=== PATIENT | female | born 1975 ===

== ENCOUNTER 2019-02-02 13:02 | Outpatient (CLI) | payer BC, MEDICARE ==
[~2019-02-02] VITALS: Ht 180.3 cm; Wt 93.4 kg
[2019-02-02] MEDS ORDERED: OMEP20TA7 PO (14:03)
[2019-02-02] MEDS ORDERED: FENT1PAT10 TD (14:03)
[2019-02-02] MEDS ORDERED: CYAN100092 IJ (14:03)
[2019-02-02] MEDS ORDERED: RIFA550T PO (14:03)
[2019-02-02] MEDS ORDERED: FLUO40CA12 PO (14:03)
[2019-02-02] MEDS ORDERED: INSU100I10 SQ (14:03)
[2019-02-02] MEDS ORDERED: ERGO50006 PO (14:03)
[2019-02-02] MEDS ORDERED: ONDA8TAB12 PO (14:03)
[2019-02-02] MEDS ORDERED: OXYC30TA80 PO (14:03)
== END 2019-02-02 14:06 | disposition home or self-care (01) ==
LOC: PREOP 13:02
PROVIDERS: ATTEND Orthopaedic Surgery
DX: Z01.818 Encounter for other preprocedural examination (principal)

== ENCOUNTER 2019-02-08 05:52 | Inpatient (IN) | payer BC, MEDICARE | END 2019-02-14 15:18 | LOC: SDC 05:52 → ICU 02-10 14:37 → SDC 17:01 → ICU 02-10 14:37 → 4TH 02-11 13:00 → ICU 17:01 | PROC: 01N80ZZ Release Thoracic Nerve, Open Approach (ICD-10-PCS; principal; 2019-02-08 07:31) | PROC: 00CX0ZZ Extirpation of Matter from Thoracic Spinal Cord, Open Approach (ICD-10-PCS; 2019-02-08 07:31) | PROC: 00HU3MZ Insertion of Neurostimulator Lead into Spinal Canal, Percutaneous Approach (ICD-10-PCS; 2019-02-08 07:31) | PROC: 0JH73MZ Insertion of Stimulator Generator into Back Subcutaneous Tissue and Fascia, Percutaneous Approach (ICD-10-PCS; 2019-02-08 07:31) | DX: G97.61 Postprocedural hematoma of a nervous system organ or structure following a nervous system procedure (principal); G82.22 Paraplegia, incomplete; G62.9 Polyneuropathy, unspecified; M54.16 Radiculopathy, lumbar region; M85.80 Other specified disorders of bone density and structure, unspecified site; K75.81 Nonalcoholic steatohepatitis (NASH); R79.1 Abnormal coagulation profile; G89.4 Chronic pain syndrome; K74.60 Unspecified cirrhosis of liver; K58.9 Irritable bowel syndrome, unspecified; M10.9 Gout, unspecified; E11.9 Type 2 diabetes mellitus without complications; F32.9 Major depressive disorder, single episode, unspecified; K21.9 Gastro-esophageal reflux disease without esophagitis; Z96.653 Presence of artificial knee joint, bilateral; M19.91 Primary osteoarthritis, unspecified site; M48.00 Spinal stenosis, site unspecified; M41.9 Scoliosis, unspecified; M51.36 Other intervertebral disc degeneration, lumbar region; Z79.891 Long term (current) use of opiate analgesic ==